=== PATIENT | female | born 1980 | race Caucasian/White ===

== ENCOUNTER 2023-02-07 10:53 | Emergency (ER) | payer BC ==
[~2023-02-07] VITALS: Ht 162.6 cm; Wt 61.2 kg
[2023-02-07 11:07] VITALS: BP 111/73; PULSE 68; RESP 20; TEMP 98; O2SAT 99
[2023-02-07] MEDS ORDERED: IBUPROFEN 600 MG TAB PO ONE (11:25)
[2023-02-07] MEDS ORDERED: IBUP-2213 PO (12:16)
[2023-02-07] MEDS ORDERED: ACET-8905 PO (12:16)
--- NOTE | 2023-02-07 12:50 | NUR ---
Patient discharged with v/s stable. Written and verbal after care instructions given and explained. Patient alert, oriented and verbalized understanding of instructions. [g ED.DCMODE] with [g ED.D/CMODE]. All questions addressed prior to discharge. ID band removed. Patient advised to follow up with PMD. Rx ofMOTRIN HYDROCODONE [] given. Patient educated on indication of medication including possible reaction and side effects. Opportunity to ask questions provided and answered.
== END 2023-02-07 12:53 | disposition home or self-care (01) ==
LOC: MED 10:53
DX: S62.392A Other fracture of third metacarpal bone, right hand, initial encounter for closed fracture (principal); S63.501A Unspecified sprain of right wrist, initial encounter; Z79.899 Other long term (current) drug therapy; Z79.1 Long term (current) use of non-steroidal anti-inflammatories (NSAID); W22.8XXA Striking against or struck by other objects, initial encounter; Y93.52 Activity, horseback riding; Y92.89 Other specified places as the place of occurrence of the external cause; Y99.8 Other external cause status
CPT/HCPCS: 73110; 73130; 99284